=== PATIENT | female | born 1990 | race Caucasian/White ===

== ENCOUNTER → 2020-11-04 09:23 | Outpatient (BNVA) | payer OTHER, SELFPAY | PROVIDERS: Family Provider Family Medicine; PCP Obstetrics & Gynecology; Visit Provider Obstetrics & Gynecology | DX: N88.8 Other specified noninflammatory disorders of cervix uteri (principal); N93.9 Abnormal uterine and vaginal bleeding, unspecified | CPT/HCPCS: 85027; 88305 ==

== ENCOUNTER → 2021-05-06 18:08 | Outpatient (BNVA) | payer OTHER, SELFPAY | PROVIDERS: PCP Obstetrics & Gynecology; Visit Provider Nurse Practitioner | DX: U07.1 COVID-19 (principal) | CPT/HCPCS: 87635 ==

== ENCOUNTER 2022-08-01 15:37 | Outpatient (CLI) | payer MEDICAID, SELFPAY | END 2022-08-01 15:38 | disposition home or self-care (01) | LOC: SPT 15:38 | PROVIDERS: PCP Obstetrics & Gynecology; Visit Provider Podiatrist Foot & Ankle Surgery | DX: Z46.89 Encounter for fitting and adjustment of other specified devices (principal); M79.672 Pain in left foot | CPT/HCPCS: 97760; L4361 ==

== ENCOUNTER → 2022-08-15 08:48 | Outpatient (BNVA) | payer MEDICAID, SELFPAY | PROVIDERS: PCP Obstetrics & Gynecology; Visit Provider Podiatrist Foot & Ankle Surgery | DX: S92.352A Displaced fracture of fifth metatarsal bone, left foot, initial encounter for closed fracture (principal); W18.30XA Fall on same level, unspecified, initial encounter | CPT/HCPCS: 73630 ==

== ENCOUNTER → 2022-09-05 11:06 | Outpatient (BNVA) | payer MEDICAID, SELFPAY | PROVIDERS: PCP Obstetrics & Gynecology; Visit Provider Podiatrist Foot & Ankle Surgery | DX: S92.352A Displaced fracture of fifth metatarsal bone, left foot, initial encounter for closed fracture (principal); X58.XXXA Exposure to other specified factors, initial encounter | CPT/HCPCS: 73630 ==

== ENCOUNTER 2023-06-05 12:57 | Outpatient (CLI) | payer MEDICAID, SELFPAY ==
--- NOTE | 2023-06-05 13:06 | MR_ITS ---
WS: [id number] MRI HEAD WITH CONTRAST TECHNIQUE: Sagittal T1, T2 axial, T2 axial FLAIR, axial susceptibility weighted imaging, axial diffus ion weighted images, and coronal T2 images were obtained. Pre and post-T1 axial and post T1 coronal i mages. ADC and FSPGR images. CLINICAL INFORMATION: NEW DAILY PERSISTENT HEADACHE COMPARISON: None. 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 Mild crowding at the foramen magnum. No hydrocephalus. Normal brain aliza m signal. No evidence of restricted diffusion to suggest acute ischemia. Ventricular system and basal cisterns are patent. No suspicious intracranial signal normalities. Otherwise normal posterior fossa. Normal v ascular flow voids at the skull base. No extra-axial fluid collections. No evidence of mass or mass e ffect. Paranasal sinuses are well aerated. Mastoid air cells are well aerated. No hemosiderin on susceptibly weighted images. Normal optic chiasm and pituitary infundibulum. No abnormal gadolinium enhancement. Normal dural venous sinuses. Normal cavernous sinuses and Meckel's cave. IMPRESSION: 1. No evidence of restricted diffusion to suggest acute ischemia. 2. 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 Mild c rowding at the foramen magnum. No hydrocephalus. Recommend MRI cervical spine without gadolinium enha ncement to exclude Chiari associated syrinx in the cervical cord 3. No abnormal gadolinium enhancement. 4. No other suspicious findings.
[2023-06-05] MEDS: gadobenate dimeglumine 20 mL vial IV (14:01)
== END 2023-06-05 12:58 | disposition home or self-care (01) ==
PROVIDERS: PCP Family Medicine; Visit Provider Family Medicine
DX: G44.52 New daily persistent headache (NDPH) (principal); G93.5 Compression of brain
CPT/HCPCS: 70553; A9577

== ENCOUNTER 2023-08-20 07:50 | Outpatient (CLI) | payer MEDICAID, SELFPAY ==
--- NOTE | 2023-08-20 07:52 | MR_ITS ---
WS: [id number] MRI CERVICAL SPINE NONCONTRAST TECHNIQUE: Sagittal T1, T2 and STIR imaging. Axial T2, gradient, and fiesta imaging. CLINICAL INFORMATION: CHIARI MALFORMATION TYPE 1 COMPARISON: MRI head 06/05/2023 FINDINGS: Straightening of the normal cervical doses. Cord signal is normal. Chiari I malformation with cerebel lar tonsils approximately 4 mm below the foramen magnum. No hydrocephalus. No syrinx within the cervi griffin cord. No abnormal cord signal. C2-C3: Normal. C3-C4: Mild disc bulging with slight effacement of the ventral thecal sac. Mild RIGHT foraminal narro wing. Spinal canal is patent. C4-C5: Mild LEFT bony foraminal narrowing. Spinal canal is patent. C5-C6: Mild broad-based disc bulging. Mild facet arthropathy. Mild LEFT and no significant RIGHT fora daryl narrowing. Uncovertebral joint hypertrophy. No facet arthropathy. C6-C7: Disc osteophyte complex with endplate ridging. Mild central canal stenosis. Narrowing of the R IGHT subarticular recess. Moderate RIGHT and mild to moderate LEFT bony foraminal narrowing. C7-T1: Mild to moderate LEFT and no significant RIGHT bony foraminal narrowing. Spinal canal is paten t. Visualized brain stem structures: Normal. Prevertebral soft tissues: Normal. IMPRESSION: 1. 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 2. Cord signal is normal. No syrinx within the cervical cord. 3. Disc osteophyte complex worse at C6-7 with mild central canal stenosis 4. Moderate RIGHT C6-7 bony foraminal narrowing. Mild to moderate LEFT C6-7 bony foraminal narrowing . 5. Mild disc bulging C5-6. 6. Mild to moderate LEFT C7-T1 bony foraminal narrowing
== END 2023-08-20 07:51 | disposition home or self-care (01) ==
LOC: RAD 07:50
PROVIDERS: PCP Family Medicine; Visit Provider Family Medicine
DX: G93.5 Compression of brain (principal); M48.02 Spinal stenosis, cervical region; M50.222 Other cervical disc displacement at C5-C6 level
CPT/HCPCS: 72141